=== PATIENT | female | born 1965 | race Two or more races ===

== ENCOUNTER 2019-09-27 17:08 | Emergency (ER) | payer OTHER ==
[~2019-09-27] VITALS: Ht 157.5 cm; Wt 77.6 kg
[2019-09-27 17:26] VITALS: Ht 157.5 cm; Wt 77.6 kg
[2019-09-27 17:42] LABS: BASOPHIL % 0.7 % (0-2); PLATELET COUNT 166 x10^3mcL (130-400); RED CELL DISTRIBUTION WIDTH 12.7 % (11.5-14.5)
[2019-09-27 17:50] LABS: CALCIUM 9.2 mg/dL (8.5-10.1); CREATININE SERUM 1.2 mg/dL (0.6-1.0)
[2019-09-27 17:55] LABS: BILIRUBIN TOTAL 0.4 mg/dL (0.20-1.00); TOTAL PROTEIN, SERUM 7.6 g/dL (6.4-8.2)
[2019-09-27 22:48] VITALS: BP 106/52
== END 2019-09-27 22:48 | disposition home or self-care (01) ==
LOC: ED 17:08
PROVIDERS: Emergency Medicine
DX: R10.31 Right lower quadrant pain (principal); M79.7 Fibromyalgia
CPT/HCPCS: J1885; J2405; J7030